=== PATIENT | female | born 1985 | race Caucasian/White ===

== ENCOUNTER 2016-10-25 04:43 | Inpatient (IN) | payer OTHER ==
[2016-10-25] MEDS ORDERED: EPSOM SALT 454 GM TP PRN (05:00)
[2016-10-25] MEDS ORDERED: TERBUTALINE SULFATE 1 MG/ML VIAL IV PRN (05:00)
[2016-10-25] MEDS ORDERED: OLIVE OIL 118 ML BTL MISC PRN (05:00)
[2016-10-25] MEDS ORDERED: LR 1,000 ML IV PRN (05:00)
[2016-10-25 05:31] LABS: % IMMATURE GRANULYOCYTES 0.6 % (0.0-1.1); ABSOLUTE IMMATURE GRANULOCYTES 0.05 10^3/uL (0.00-0.10); ADD DIFF? NO; ADD MORPH? NO; ADD SCAN? NO; ATYPICAL LYMPHOCYTE FLAG 0 (0-99); FRAGMENT RBC FLAG 0 (0-99); HEMOGLOBIN 13.9 g/dL (12.6-16.3); LEFT SHIFT FLG 10 (0-99); LIPEMIA HEMOLYSIS FLAG 80 (0-99); MEAN CELL HEMOGLOBIN 29.4 pg (27.9-34.1); MEAN CELL HEMOGLOBIN CONCENTR. 33.1 g/dL (32.4-36.7); MEAN CELL VOLUME 88.8 fL (81.5-99.8); MEAN PLATELET VOLUME 11.9 fL (8.7-11.7); PLATELET CLUMPS FLAG 20 (0-99); PLATELET COUNT 216 10^3/uL (150-400); RED BLOOD CELL COUNT 4.73 10^6/uL (4.18-5.33); RED CELL DISTRIBUTION WIDTH 12.3 % (11.5-15.2)
[2016-10-25] MEDS ORDERED: OXYTOCIN/RINGERS LACTATE 20 UNIT/1,000 ML BAG IV ONE (05:47)
[2016-10-25] MEDS ORDERED: LIDOCAINE 1% 300 MG/30 ML SDV ONE (05:48)
[2016-10-25] MEDS: OXYTOCIN/RINGERS LACTATE 1,000 ML IV PRN ×2 (05:50→07:52)
[2016-10-25] MEDS: IBUPROFEN 600 MG TAB PO PRN ×3 (06:06→18:44)
--- NOTE | 2016-10-25 06:16 | OBDEL ---
Info Type: Vaginal GBS+: No Indications for Delivery: Spontaneous Labor, SROM Vaginal Delivery - Labor and Delivery Onset of Contractions Date: 10/25/16 Onset of Contractions Time: 03:30 Onset of Contractions Type: Spontaneous Rupture of Membranes Date: 10/25/16 Rupture of Membranes Time: 04:35 Rupture of Membranes Type: Spontaneous Amniotic Fluid Color: Clear Dilation Complete Date: 10/25/16 Dilation Complete Time: 05:37 Placenta Delivery Date: 10/25/16 Placenta Delivery Time: 05:44 Total Hours of Labor: 2 Laceration: 2nd Degree Repair: 3-0 Vaginal Sponge Count Correct: Yes Vaginal Needle Count Correct: Yes Vaginal Sweep Performed: No EBL: 300 Delivery Events: None, Other (Specify) (nuchal arm) Delivery Comment: arrived 7 cm. rapid progress. srom. wanted epidural but went too fast. pushed x 4 contractions. [place] [facility] Delivery Date: 10/25/16 Delivery Time: 05:40 PAT: 11/01/16 Gestational Age: 39 week(s) and 0 day(s) Sex of : Male Score (1 Min): 8 Score (5 Min): 9 ICD10 Worksheet Patient Problems: Problems Problem Status Onset Spontaneous vaginal delivery Acute
[2016-10-25] MEDS ORDERED: HYDROCODONE/APAP 5/325 TAB PO PRN (06:17)
[2016-10-25] MEDS ORDERED: HYDROCORTISONE 0.5% CREAM TP PRN (06:17)
[2016-10-25] MEDS ORDERED: SIMETHICONE 80 MG TAB CHEW PO PRN (06:17)
--- NOTE | 2016-10-25 06:58 | GHP ---
[f rep st] PREOP HISTORY AND PHYSICAL DATE OF ADMISSION: 10/25/2016 ADMISSION DIAGNOSES: 1. Intrauterine at 39 weeks' gestation. 2. Active labor. HISTORY OF PRESENT ILLNESS: The patient is a 31-year-old 3, para 1-0-1-1, who began having contractions at 3:30 this morning. They were mild, but she does have a history of having a rapid la bor with mild contractions. She had spontaneous rupture of membranes on the way to the hospital. S he arrived on Labor and Delivery and was 7 cm dilated. She requested an epidural. However, Anesthe cristian would not place epidural until platelets were back and patient progressed too rapidly to await r esults of her epidural. She did rapidly progressed to complete and then began pushing. She pushed with 4 contractions and had a spontaneous vaginal delivery. MEDICAL HISTORY: Significant for baby blues several weeks , but then no significant postp artum depression. History of kidney stones, history of cervical dysplasia. MEDICATIONS: vitamins and iron. SURGICAL HISTORY: D and C, wisdom tooth extraction, right clavicle shave down, kidney stones. She had a stent in her ureter for kidney stones. ALLERGIES: No known drug allergies. SOCIAL HISTORY: Patient is . She lives with her and their daughter. She denies tob acco, alcohol, or drug use. FAMILY MEDICAL HISTORY: Significant for her brother with [id number] syndrome. OBSTETRIC/GYNECOLOGIC HISTORY: Menarche at age 13. Periods every 26-30 days, lasting 4 days. She is a 3, para 1-0-1-1. In 07/2013, she had a missed . 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 She had a dilation and curettage for that. In 06/2014, she had a spontaneous vaginal d elivery of a 6 pound, 10 ounce female infant at 39 weeks' gestation. She had a precipitous labor as well. Current has been uncomplicated. The patient does have a history of low-grade Pap smears. She will have a repeat Pap smear after delivery. The patient denies any history of any oth er sexually transmitted diseases. REVIEW OF SYSTEMS: A 10-point review of systems is negative with the exception of positive mo vement, positive loss of fluid. No vaginal bleeding. Denies any headache, changes in vision, nause a, vomiting, fevers, or chills. PHYSICAL EXAM: VITAL SIGNS: Stable. Her blood pressures are slightly elevated at time of delivery , but are normal. Otherwise, her general appearance is now alert and oriented x3. NEUROLOGIC: Unr emarkable. HEART: Rate is regular. LUNGS: Clear to auscultation bilaterally. NECK: Supple and mobile. ABDOMEN: Gravid, nondistended, nontender. EXTREMITIES: Reveal no calf tenderness or arlyn a. CERVICAL EXAM: She was 7 cm dilated on arrival and 100% effaced at -1 station and grossly ruptu red. heart tracing was category 1. She was having contractions every 2-3 minutes. LABORATORY DATA: The patient's labs, blood type B positive, antibody screen negative. Rub kip immune. GBS negative. HBsAg negative. HIV negative. Her 50 g glucose was 94. Her Verifi sc reen was negative. ASSESSMENT AND PLAN: 31-year-old 3, para 1-0-1-1, who was 39 weeks' gestation, who presente d in active labor and had spontaneous vaginal delivery and a second-degree laceration. Patient is alex glass on . /[id number]/MODL
[2016-10-25] MEDS: DOCUSATE SODIUM 100 MG CAP PO PRN (20:14)
[2016-10-26] MEDS: IBUPROFEN 600 MG TAB PO PRN ×4 (00:46→18:30)
[2016-10-26] MEDS: ACETAMINOPHEN 325 MG TAB PO PRN ×5 (06:48→19:59)
[2016-10-26 07:09] LABS: HEMATOCRIT 32.9 % (38.0-47.0); HEMOGLOBIN 10.5 g/dL (12.6-16.3)
[2016-10-26] MEDS: DOCUSATE SODIUM 100 MG CAP PO PRN ×2 (10:32→20:00)
--- NOTE | 2016-10-26 11:18 | OBPP ---
Progress Note Assessment/Plan: Assessment: Plan: Subjective: Pt is doing well this am. She has significant cramping with nursing but it is controlled with Ibuprofen. Otherwise she has little pain, perineal pain is well controlled. Nursing is going much better this time, with a good latch. She has min lochia and is ambulating and voiding without difficulty. Objective: 10/26/16 06:40 Patient ABO/Rh B POSITIVE 10/25/16 05:10 Temp Pulse Resp BP Pulse Ox 37.0 C 94 17 124/71 H 96 10/26/16 08:00 10/26/16 08:00 10/26/16 08:00 10/26/16 08:00 10/26/16 08:00 Uterine Position/Fundal Height: Umbilicus -2 Uterine Tone: Firm Physical Exam - Physical Exam General Appearance: WD/WN, alert, no apparent distress Neck: non-tender, full range of motion, supple Respiratory: chest non-tender, lungs clear, normal breath sounds Cardiac/Chest: regular rate, rhythm Abdomen: normal bowel sounds Extremities: swelling (no), Leisa's sign (neg)
[2016-10-26] MEDS: IRON POLYSAC/IRON HEME 28 MG TAB PO SCH (12:56)
[2016-10-27] MEDS: IBUPROFEN 600 MG TAB PO PRN ×2 (00:26→06:37)
[2016-10-27] MEDS: ACETAMINOPHEN 325 MG TAB PO PRN (00:29)
[2016-10-27 08:27] VITALS: BP 113/74; PULSE 96; RESP 15; TEMP 98.1; O2SAT 96
[2016-10-27] MEDS: IRON POLYSAC/IRON HEME 28 MG TAB PO SCH (08:53)
--- NOTE | 2016-10-27 08:53 | OBPP ---
Progress Note Assessment/Plan: Assessment: ppd# 2 s/p breast feeding anemia B+/Rubella Immune Plan: iron discharge instructions 10/27/16 08:51 Subjective: patient is doing well. bottom still sore but pain well controlled. normal lochia. breast feeding is going well. denies headache and changes in vision. ambulating. voiding without difficulty. ready to go home. Objective: 10/26/16 06:40 Patient ABO/Rh B POSITIVE 10/25/16 05:10 Temp Pulse Resp BP Pulse Ox 36.7 C 96 15 113/74 96 10/27/16 08:00 10/27/16 08:00 10/27/16 08:00 10/27/16 08:00 10/27/16 08:00 Physical Exam - Physical Exam General Appearance: WD/WN, alert, no apparent distress Neck: non-tender, full range of motion Respiratory: chest non-tender, lungs clear, normal breath sounds Cardiac/Chest: normal peripheral pulses, regular rate, rhythm Abdomen: normal bowel sounds, hypoactive bowel sounds, non-tender, other ( fundus firm and non tender) Extremities: normal range of motion, non-tender, normal inspection, normal capillary refill Skin: normal color, warm/dry Neuro/Psych: no motor/sensory deficits, alert, normal mood/affect, oriented x 3
--- NOTE | 2016-10-27 08:56 | OBGCSDC ---
General Delivery Information - General Info : 3 Para: 2 Delivery Physician/CNM: Emeli Osborne Labs: Patient ABO/Rh B POSITIVE 10/25/16 05:10 Hct 32.9 % (38.0-47.0) L 10/26/16 06:40 Vaginal - Diagnosis Labor: Spontaneous Rupture of Membranes Type: Spontaneous Amniotic Fluid Color: Clear Laceration: 2nd Degree Repair: 3-0 Delivery Events: None, Other (Specify) (nuchal arm) - Operations/Procedures L&D Analgesia/Anesthesia Type: None - Hospital Course Antepartum: uncomplicated , negative verify Intrapartum: spontaneous labor, arrived 7 cm, missed epidural. pushed with 4 contractions. second degree laceration. : normal lochia. denies headache and changes in vision. breast feeding. no issues. - Delivery L&D Analgesia/Anesthesia Type: None [place] [facility] Delivery Date: 10/25/16 Delivery Time: 05:40 PAT: 11/01/16 Gestational Age: 39 week(s) and 2 day(s) Sex of : Male [place] Weight (gm): 3492 g Score (1 Min): 8 Score (5 Min): 9 Discharge Information - Discharge Information Discharge Medications: Iron, Ibuprofen Condition: Good Instruction/Follow Up: Four Weeks, Six Weeks Discharge Physician/CNM: Emeli Osborne
[2016-10-27] MEDS: DOCUSATE SODIUM 100 MG CAP PO PRN (09:12)
== END 2016-10-27 10:30 | disposition home or self-care (01) | DRG 775 ==
LOC: FLD 04:43 → FOB 09:24
PROVIDERS: ADMIT Obstetrics & Gynecology; ATTEND Obstetrics & Gynecology
PROC: 10E0XZZ Delivery of Products of Conception, External Approach (ICD-10-PCS; principal; 2016-10-25)
PROC: 0KQM0ZZ Repair Perineum Muscle, Open Approach (ICD-10-PCS; principal; 2016-10-25)
DX: O70.1 Second degree perineal laceration during delivery (principal); Z37.0 Single live birth; Z3A.39 39 weeks gestation of pregnancy
CPT/HCPCS: J2590